=== PATIENT | female | born 1990 | race Caucasian/White ===

== ENCOUNTER 2018-05-19 11:27 | Emergency (ER) | payer BC ==
--- NOTE | 2018-05-19 11:57 | EDPHY ---
H & P Stated Complaint: sent from for elevated HR, swollen lymph nodes, sore throat Time Seen by Provider: 05/19/18 11:42 HPI/ROS: CHIEF COMPLAINT: Sore throat, tachycardia HISTORY OF PRESENT ILLNESS: 28-year-old immunocompetent female self presented to urgent care today when she woke with sore throat, was noted to be tachycardic , had negative strep pharyngitis testing and referred to the ER for further evaluation. She is complaining of sore throat, cervical adenopathy since today. Denies: Headache, otalgia, change in voice, fever, chills, chest pain, abdominal pain, nausea, vomiting, back or flank pain, urinary abnormality PRIMARY CARE PROVIDER: REVIEW OF SYSTEMS: 10 systems reviewed and negative with the exception of the elements mentioned in the history of present illness PAST MEDICAL & SURGICAL HISTORY: Prior mononucleosis history SOCIAL HISTORY: Nonsmoker PHYSICAL EXAM (Prior to examination, patient consented to physical exam, hands were washed and my usual and customary physical exam procedures followed) 1) GENERAL: Well-developed, well-nourished, alert and oriented. Appears nontoxic answering questions appropriately. 2) HEAD: Normocephalic, atraumatic 3) HEENT: Pupils equal, round, reactive to light bilaterally. Sclera anicteric. Oropharynx: Bilaterally enlarged, symmetrical, exudate of tonsils with no pointing of the uvula. No trismus no drooling. Dry mucous membranes. Ears bilaterally with normal tympanic membranes. No signs of otitis media otitis externa 4) NECK: Full range of motion, no meningeal signs. Positive tender cervical adenopathy. 5) LUNGS: Clear auscultation bilaterally, no wheezes, no rhonchi, no retractions. 6) HEART: Regular rate and rhythm, no murmur, no heave, no gallop. 7) ABDOMEN: No guarding, no rebound, no focal tenderness, negative McBurney's, negative Reddy's, negative Rovsing's, negative peritoneal sign, no splenomegaly or left upper quadrant tenderness 8) MUSCULOSKELETAL: Moving all extremities, no focal areas of tenderness, no obvious trauma. No peripheral edema or discoloration. 9) BACK: No CVA tenderness, no midline vertebral tenderness, no fluctuance, no step-off, no obvious trauma, no visual or palpable abnormality. 10) SKIN: No rash, no petechiae. 11) Psychiatric: Patient is oriented X 3, there is no agitation. DIFFERENTIAL DIAGNOSIS: In no particular order, my differential diagnosis includes, but is not limited to, strep pharyngitis, viral pharyngitis, peritonsillar abscess, retropharyngeal abscess or pjlegmon, mononucleosis, meningitis, Lemierre syndrome. - Personal History LMP (Females 10-55): 15-21 Days Ago - Medical/Surgical History Hx Asthma: No Hx Chronic Respiratory Disease: No Hx Diabetes: No Hx Cardiac Disease: No Hx Renal Disease: No Hx Cirrhosis: No Hx Alcoholism: No Hx HIV/AIDS: No Hx Splenectomy or Spleen Trauma: No Other PMH: appy. parathyroid - Social History Smoking Status: Never smoked Constitutional: Initial Vital Signs Temperature (C) 36.6 C 05/19/18 11:33 Heart Rate 128 H 05/19/18 11:33 Respiratory Rate 18 05/19/18 11:33 Blood Pressure 116/84 H 05/19/18 11:33 O2 Sat (%) 97 05/19/18 11:33 O2 Delivery Mode Room Air Allergies/Adverse Reactions: amoxicillin Allergy (Verified 05/19/18 11:31) azithromycin Allergy (Verified 05/19/18 11:32) clarithromycin [From Biaxin] Allergy (Verified 05/19/18 11:32) Home Medications: Medication Instructions Recorded Amitriptyline HCl 05/19/18 Liothyronine Sodium 05/19/18 Medical Decision Making ED Course/Re-evaluation: Care of patient under supervision of secondary supervising physician Dr Franco patient re-evaluated most recently at 1:15 p.m.. She is feeling improvement with IV hydration. Discussed her positive mono testing. She has received aggressive IV hydration. Heart rate in the 90s. Given dose of IV Decadron. She has no complaints of abdominal pain. He is not involved in contact sports. Has been given my usual and customary mononucleosis precautions instructions. At this time I do not think that hospitalization or emergent ENT consultation is indicated. She is protecting her airway well. Recommend follow up with ENT. Contact precautions provided. She feels comfortable being discharged. - Data Points Laboratory Results: Laboratory Results 05/19/18 11:55 05/19/18 11:55 05/19/1818 05/19/18 11:55 11:55 11:55 WBC 10.30 10^3/uL H 10^3/uL (3.80-9.50) RBC 4.59 10^6/uL 10^6/uL (4.18-5.33) Hgb 13.6 g/dL g/dL (12.6-16.3) Hct 41.2 % % (38.0-47.0) MCV 89.8 fL fL (81.5-99.8) MCH 29.6 pg pg (27.9-34.1) MCHC 33.0 g/dL g/dL (32.4-36.7) RDW 13.3 % % (11.5-15.2) Plt Count 264 10^3/uL 10^3/uL (150-400) MPV 10.8 fL fL (8.7-11.7) Neut % (Auto) 75.3 % H % (39.3-74.2) Lymph % (Auto) 14.3 % L % (15.0-45.0) [place] % (Auto) 9.8 % % (4.5-13.0) Eos % (Auto) 0.1 % L % (0.6-7.6) Baso % (Auto) 0.2 % L % (0.3-1.7) Nucleat RBC Rel Count 0.0 % % (0.0-0.2) Absolute Neuts (auto) 7.76 10^3/uL H 10^3/uL (1.70-6.50) Absolute Lymphs (auto) 1.47 10^3/uL 10^3/uL (1.00-3.00) Absolute Monos (auto) 1.01 10^3/uL H 10^3/uL (0.30-0.80) Absolute Eos (auto) 0.01 10^3/uL L 10^3/uL (0.03-0.40) Absolute Basos (auto) 0.02 10^3/uL 10^3/uL (0.02-0.10) Absolute Nucleated RBC 0.00 10^3/uL 10^3/uL (0-0.01) Immature Gran % 0.3 % % (0.0-1.1) Immature Gran # 0.03 10^3/uL 10^3/uL (0.00-0.10) Sodium 138 mEq/L mEq/L (135-145) Potassium 3.8 mEq/L mEq/L (3.5-5.2) Chloride 105 mEq/L mEq/L (97-110) Carbon Dioxide 23 mEq/l mEq/l (22-31) Anion Gap 10 mEq/L mEq/L (6-14) BUN 13 mg/dL mg/dL (7-23) Creatinine 0.6 mg/dL mg/dL (0.6-1.0) Estimated GFR > 60 Glucose 93 mg/dL mg/dL (70-100) Calcium 8.8 mg/dL mg/dL (8.5-10.4) Beta HCG, Qual NEGATIVE Monoscreen POSITIVE H (NEGATIVE) Medications Given: Discontinued Medications Dexamethasone (Decadron Injection) 10 mg IVP EDNOW ONE Stop: 05/19/18 13:05 Last Admin: 05/19/18 13:24 Dose: 10 mg Sodium Chloride (Ns) 1,000 mls @ 3,000 mls/hr IV ONCE ONE Stop: 05/19/18 12:17 Last Admin: 05/19/18 11:58 Dose: 1,000 mls Departure - Departure Disposition: Home, Routine, Self-Care Clinical Impression: Mononucleosis Qualifiers: Infectious mononucleosis etiology: unspecified organism Infectious mononucleosis complication: without complication Qualified Code(s): B27.90 - Infectious mononucleosis, unspecified without complication Condition: Good Instructions: Mononucleosis (ED) Additional Instructions: Return to the ER immediately if you cannot swallow, have drooling, fevers, neck stiffness, cannot open your jaw, or any other symptoms that concern you. Do not engage in contact sports. If you sustained abdominal injury recommend you seek medical attention . if you develop abdominal pain seek medical attention. Referrals: Ziyad Waters MD [Medical Doctor] - 2-3 days, call for appt. Stand Alone Forms: Work Excuse
[2018-05-19] MEDS ORDERED: NS 1,000 ML IV ONE (11:58)
[2018-05-19 12:09] LABS: PLATELET COUNT 264 10^3/uL (150-400)
[2018-05-19] MEDS ORDERED: DEXAMETHASONE 10 MG/ML VIAL IVP ONE (13:04)
[2018-05-19] MEDS ORDERED: DEXAMETHASONE 4 MG/ML VIAL ONE (13:11)
[2018-05-19 14:06] VITALS: BP 114/80
== END 2018-05-19 14:04 | disposition home or self-care (01) ==
DX: B27.90 Infectious mononucleosis, unspecified without complication (principal)
CPT/HCPCS: 96374; J1100